=== PATIENT | male | born 1975 | race Caucasian/White ===

== ENCOUNTER 2020-12-11 07:58 | Day surgery (SDC) | payer OTHER ==
[~2020-12-11 07:58] MED LIST: CLONAZEPAM0.5 MG PO; ZOLOF PO
== END 2020-12-11 14:46 | disposition home or self-care (01) ==
LOC: CIR.AMB 07:58
PROVIDERS: ATTEND Orthopaedic Surgery
DX: G56.21 Lesion of ulnar nerve, right upper limb (principal); Z20.822 Contact with and (suspected) exposure to COVID-19